=== PATIENT | male | born 1970 | race Caucasian/White ===

== ENCOUNTER 2020-06-23 02:02 | Emergency (ER) | payer OTHER, SELFPAY ==
[2020-06-23 02:06] VITALS: BP 131/79; PULSE 78; RESP 18; TEMP 37; O2SAT 96; BMI 25.2
--- NOTE | 2020-06-23 02:17 | PC.NURSE ---
PATIENT IN C-COLLAR AND IS AWAITING MD EVALUATION WELL IMAGING. PATIENT COMPLAINT OF HEADACHE AND LIGHTS DIMMED FOR PATIENT COMFORT
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
== END 2020-06-23 02:54 | disposition left against medical advice (07) ==
PROVIDERS: Emergency Provider Emergency Medicine
DX: Z04.1 Encounter for examination and observation following transport accident (principal)
CPT/HCPCS: 99283

== ENCOUNTER 2023-09-22 23:12 | Emergency (ER) | payer OTHER, SELFPAY ==
[2023-09-22 23:23] VITALS: BP 133/80; PULSE 64; RESP 18; TEMP 36.5; O2SAT 97; BMI 22.4
== END 2023-09-23 01:52 | disposition left against medical advice (07) ==
PROVIDERS: Emergency Provider Emergency Medicine
DX: S01.511A Laceration without foreign body of lip, initial encounter (principal); X58.XXXA Exposure to other specified factors, initial encounter; Y93.9 Activity, unspecified; Y92.9 Unspecified place or not applicable; Y99.9 Unspecified external cause status
CPT/HCPCS: 99281

== ENCOUNTER 2024-04-30 18:19 | Emergency (ER) | payer OTHER, SELFPAY ==
[2024-04-30 18:32] VITALS: BP 128/72; PULSE 88; RESP 18; TEMP 36.6; O2SAT 96; BMI 20.4
--- NOTE | 2024-04-30 18:36 | ED_ITS ---
HPI - General Adult General Chief complaint: General Medical Stated complaint: left leg infection Time Seen by Provider: 04/30/24 23:11 Source: patient Mode of arrival: ambulatory Limitations: no limitations History of Present Illness ED Provider: Dr. Vaibhav Burgos HPI narrative: 53-year-old male with a history of opiate and cocaine use disorder who presents emergency department for evaluation of abscess and cellulitis of the left lower extremity. The patient states that 4 days prior he injected cocaine into his left lower extremity, and he believes that he missed the vein. He states that 2 days prior he then developed increased pain, redness and swelling. He states that these symptoms have gotten progressively worse. He is currently complaining of 10/10 pain in his left lower extremity. He denied systemic symptoms such as fever, chills, nausea, vomiting or fatigue. Related Data Home Medications ?Medication ?Instructions ?Recorded ?Confirmed No Known Home Meds 06/23/20 06/23/20 Allergies Allergy/AdvReac Type Severity Reaction Status Date / Time No Known Allergies Allergy Verified 04/30/24 18:35 Review of Systems 2 Review of Systems: Yes all other systems are reviewed and are negative [facility] Past Medical History [facility] Narrative: Social history: He does smoke cigarettes. He denies alcohol use. He states that he had a period of sobriety but recently started using cocaine every 1-2 weeks and he has been injecting heroin every 1-2 weeks as well. Patient is in a methadone program. Medical History No known health problems Surgical History No history of previous surgery No history of previous surgery Social History Social History Smoked in Last 30 Days: Yes Use of substances other than those prescribed or required for medical reasons: Yes Substance Use Type: Crack/Cocaine and Heroin Substance Use Frequency: Chronic Longstanding Advance Directives: No Advance Directives Information Provided: No Do you have a plan to hurt others: No Plan Physical Exam ED Vital Signs: Vital Signs - 24 hr 04/30/24 18:32 04/30/24 21:38 Temperature 97.8 F 98.1 F Pulse Rate 88 70 Respiratory Rate 18 17 Blood Pressure 128/72 119/74 Pulse Oximetry 96 96 Oxygen Delivery Method Room Air Room Air BMI result Body Mass Index 20.4 Vital signs were normal Exam: Left lower extremity: The patient just above the ankle to just below the knee, the erythema is warm to the touch, there is a large 8 x 8 cm abscess in the center of the erythema which is flocculent. Extremities neurovascular intact Course Course Course Narrative: This is a rapid medical exam performed by Justin Muñoz NP: Additional HPI, ROS, PE not included below will be deferred to primary provider. Patient is a 53-year-old male with history of opioid use disorder on methadone presenting to the emergency department with complaint of left lower leg infection for the past 3 days. Lower leg appears erythematous and hot to touch, positive swelling. Patient reports injecting cocaine into affected area after a recent relapse. He states that he injected cocaine to the area. Denies fevers. States he attempted to cleanse the area with peroxide. Plan: blood cultures, labs Procedures Abscess I/D Site: lower extremity Side (if applicable): left Local Anesthetic: lidocaine 1% Amount of anesthesia used (mL): 5 Technique: incised with blade Amount of fluid expressed (mL): 75 Sent for culture/gram staining?: Yes Irrigation: Yes Packing used?: iodoform (Quarter-inch) Complications: pain Medical Decision Making Medical Decision Making MDM Narrative: 53-year-old male with a history of heroin and opiate use disorder who presents emergency department for evaluation of cellulitis and abscess was left lower extremity which has gotten progressively worse over the last 2-4 days. The abscess started after he injected cocaine into this area proximally 4 days prior. He had no systemic symptoms. Vital signs were normal. Exam is consistent with a cellulitis of the left lower extremity in the pretibial area with abscess. Differential diagnosis: ?Includes but is not limited to cellulitis, abscess, osteomyelitis Following evaluation was ordered: CBC, CMP, CRP, ESR, lactic acid, wound culture Patient was treated with the following: Dilaudid 1 mg IV x2, Toradol 30 mg IV x1, Keflex 500 mg orally, doxycycline 100 mg orally Course: 00:25 My interpretation patient's laboratory evaluation is as follows: WBC normal 10,800, normocytic anemia with an H&H of 11.4 and 33.5. CRP elevated 19.81. ESR elevated 80. The patient's abscess was incised and drained by me, proximally 75 cc of purulent material was expressed from the abscess cavity. The patient does not want to be admitted at this time and wants to 1st be treated with oral antibiotics. The patient was given his 1st dose of Keflex and doxycycline here in the emergency department. He was prescribed Keflex 500 mg 4 times a day for 7 days and doxycycline 100 mg every 12 hours x7 days. He was given printed and verbal instructions and discharged home. Admission/Observation Consideration of admission/observation: Escalation of care including admission/observation considered Lab Data [facility] Lab Attestation statement: I reviewed the patient's lab results. 04/30/24 19:09 04/30/24 19:09 Labs: Lab Results 04/30/24 04/30/24 Range/Units 19:09 21:36 WBC 10.8 (4.8-10.8) X10*3/uL RBC 3.84 L (4.60-5.80) X10*6/uL Hgb 11.4 L (14.0-18.0) g/dl Hct 33.5 L (42.0-52.0) % MCV 87.2 (80.0-98.0) fL MCH 29.7 (27.0-33.0) pg MCHC 34.0 (31.0-36.0) g/dl RDW 14.7 (11.0-16.0) % Plt Count 348 (160-400) X10*3/uL MPV 8.3 L (9.4-12.4) fL Immature Gran % (Auto) 0.9 H (0.0-0.4) % Neut % (Auto) 70.4 (45-73) % Lymph % (Auto) 13.2 L (20-40) % [place] % (Auto) 13.9 H (2-11) % Eos % (Auto) 1.0 (0-4) % Baso % (Auto) 0.6 (0-2) % Lymph # (Auto) 1.4 (1.2-4.9) X10*3/uL [place] # (Auto) 1.5 H (0.1-1.2) X10*3/uL Eos # (Auto) 0.1 (0.0-0.4) X10*3/uL Baso # (Auto) 0.1 (0.0-0.2) X10*3/uL Abs Immat Gran (auto) 0.10 H (0.00-0.03) X10*3/uL Absolute Neuts (auto) 7.6 (2.0-8.3) x10*3/uL Absolute Nucleated RBC 0.000 (0.0-0.012) X10*3/uL Nucleated RBC % (auto) 0.0 (0.0-0.2) /100WBC ESR 80 H (0-15) MM/HR Sodium 134 L (135-145) mmol/L Potassium 4.4 (3.3-5.1) mmol/L Chloride 95 L (96-108) mmol/L Carbon Dioxide 29 (22-29) mmol/L Anion Gap 14 (12-20) BUN 14 (9-16) mg/dL Creatinine 0.79 (0.5-1.4) mg/dL Estim Creat Clear Calc 101.5 Estimated GFR > 60 Random Glucose 97 (60-115) mg/dL Lactic Acid 0.8 (0.5-2.0) mmol/L Calcium 9.1 (8.4-10.2) mg/dL Total Bilirubin 0.3 (0.0-1.0) mg/dL AST 16 (5-37) U/L ALT 19 (0-40) U/L Alkaline Phosphatase 121 H (39-117) U/L C-Reactive Protein 19.81 H (< or = 0.50) mg/dL Total Protein 7.1 (6.5-8.0) g/dL Albumin 3.5 (3.5-5.0) g/dL Prescription Management I considered prescription management with: Antibiotic Chronic Conditions Patient?s care impacted by: Other (Cocaine and heroin use disorder) Discharge Plan Discharge Clinical Impression: Cellulitis and abscess of left leg, Encounter for incision and drainage procedure Patient Disposition: Home, Self-Care Instructions: Incision and Drainage (ED), Cellulitis (ED) Additional Instructions: Your abscess was incised, drained and packed with [id number] iodoform gauze. The packing needs to stay in for 4 days and can either be removed by you, an urgent care clinic or here in the emergency department. If the packing falls out before 4 days it does not need to be replaced/reinserted. You should keep your leg elevated. You should apply a heating pad on low for 15-20 minutes 4 to 6 times a day you. This will increase the blood flow to the area and help the healing process. Take doxycycline 100 mg, 1 pill every 12 hours for 7 days Take Keflex (cephalexin) 500 mg pills, 1 pill 3 times a day for 7 days. Take ibuprofen 200 mg pills, 2 pills every 6 hours as needed for pain or fever. Take Tylenol (acetaminophen) 500 mg pills, 2 pills every 6 hours as needed for pain or fever. Follow-up with your doctor in 4 days Please return to the emergency department if your symptoms get worse or if you develop any symptoms that are concerning to you. If the redness spreads outside of the blue line then you should return to the emergency department to be re-evaluated and possibly admitted for IV antibiotics. Prescriptions: No Action No Known Home Meds Print Language: Azeri
[2024-04-30 19:18] LABS: Basophils Absolute Auto 0.1 X10*3/uL (0.0-0.2); Basophils Percent Auto 0.6 % (0-2); Eosinophils Absolute Auto 0.1 X10*3/uL (0.0-0.4); Hematocrit 33.5 % (42.0-52.0); Hemoglobin 11.4 g/dl (14.0-18.0); Imm Gran Pct Auto 0.9 % (0.0-0.4); Lymphocytes Absolute Auto 1.4 X10*3/uL (1.2-4.9); Lymphocytes Percent Auto 13.2 % (20-40); MANUAL DIFF FLAG NO; Mean Corpuscular Hemoglobin 29.7 pg (27.0-33.0); Mean Corpuscular Volume 87.2 fL (80.0-98.0); Mean Platelet Volume 8.3 fL (9.4-12.4); Monocytes Absolute Auto 1.5 X10*3/uL (0.1-1.2); Monocytes Percent Auto 13.9 % (2-11); Neutrophils Absolute Auto 7.6 x10*3/uL (2.0-8.3); Neutrophils Percent Auto 70.4 % (45-73); Platelet Count 348 X10*3/uL (160-400); Red Blood Count 3.84 X10*6/uL (4.60-5.80); Red Cell Distribution Width 14.7 % (11.0-16.0); White Blood Count 10.8 X10*3/uL (4.8-10.8)
--- NOTE | 2024-04-30 19:26 | MHC.EDTECH ---
pATIENT BLOOD DRAWN INCLUDING BOTH SETS OF BLOOD CULTURE DRAWN FROM DIFFERENT SITES AND SENT TO LAB ,PIT PROVIDER DID NOT ORDER LACTIC ACID .
[2024-04-30 19:42] LABS: Alanine Aminotransferase 19 U/L (0-40); Albumin Level 3.5 g/dL (3.5-5.0); Alkaline Phosphatase 121 U/L (39-117); Anion Gap 14 (12-20); Aspartate Amino Transferase 16 U/L (5-37); Bilirubin Total 0.3 mg/dL (0.0-1.0); Blood Urea Nitrogen 14 mg/dL (9-16); C Reactive Protein 19.81 mg/dL (< or = 0.50); Calcium 9.1 mg/dL (8.4-10.2); Carbon Dioxide 29 mmol/L (22-29); Chloride 95 mmol/L (96-108); Creatinine Clr Calc Pharmacy 101.5; Estimated Glomerular Filt Rate > 60; Glucose Random 97 mg/dL (60-115); Potassium 4.4 mmol/L (3.3-5.1); Sodium 134 mmol/L (135-145); Total Protein 7.1 g/dL (6.5-8.0)
[2024-04-30 20:14] LABS: Erythrocyte Sedimentation Rate 80 MM/HR (0-15)
[2024-04-30 21:38] VITALS: BP 119/74; PULSE 70; RESP 17; TEMP 36.7; O2SAT 96
[2024-04-30 21:54] LABS: Lactic Acid 0.8 mmol/L (0.5-2.0)
[2024-04-30] MEDS: Ketorolac Tromethamine 15 MG/ML VIAL 30 MG IVPUSH (23:27)
[2024-04-30] MEDS: HYDROmorphone HCl 1 MG/ML SYRINGE IVPUSH (23:28)
[2024-05-01] MEDS: Lidocaine HCl 1 % MPF 5 ML VIAL EPIDURAL (00:14)
[2024-05-01] MEDS: HYDROmorphone HCl 1 MG/ML SYRINGE IVPUSH (00:29)
[2024-05-01] MEDS: Doxycycline Monohydrate 100 MG CAPSULE PO (00:29)
[2024-05-01] MEDS: cephALEXin 500 MG CAPSULE PO (00:29)
[2024-05-01 00:44] VITALS: BP 119/74; PULSE 70; RESP 17; TEMP 36.7; O2SAT 96
== END 2024-05-01 00:40 | disposition home or self-care (01) ==
PROVIDERS: Registered Nurse Emergency; Emergency Provider Emergency Medicine Emergency Medical Services; PCP Internal Medicine
DX: L03.116 Cellulitis of left lower limb (principal); F11.20 Opioid dependence, uncomplicated; F17.210 Nicotine dependence, cigarettes, uncomplicated
CPT/HCPCS: 10060; 36415; 80053; 83605; 85025; 85652; 86140; 87040; 87070; 87077; 87186; 87205; 96374; 96375; 96376; 99284; J1170; J1885

== ENCOUNTER 2025-02-14 09:15 | Outpatient (RCR) | payer OTHER, SELFPAY ==
[2025-02-07 11:20] VITALS: BMI 23.8
[2025-02-07 11:21] VITALS: BP 140/80; PULSE 64; TEMP 36.8
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
--- NOTE | 2025-02-08 09:24 | PC.NURSE ---
I asked Colby if he was able to complete a TOVAR today. He stated he was not and walked away.
--- NOTE | 2025-02-09 16:25 | HO.PHP ---
Client's case has been opened and reviewed in team.
--- NOTE | 2025-02-09 17:23 | HO.PHP ---
Colby went home half day today, 02/09/25, reported increased physical pain.Denied SI, safe, reports he will be in tomorrow.
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
--- NOTE | 2025-02-15 15:49 | HO.PHP ---
Colby did not come in to programming today 02/15/25, pt was sent home yesterday due to active pink eye symptoms. A voicemail was left today requesting a call back to assess safety and status of his pink eye and if pt will be able to return and complete PHP or if he will need a medical discharge due to his infection. Pt did call back and left a voicemail that was difficult to understand, mentioned forgetting to call and something about returning to PHP but pt details were not clear. Cobbler Sole called Colby again, left a voicemail asking him to contact Nery or this magnetic tape typewriter operator for an update but pt did not call back. His emergency contact Vanessa was called at roughly 3:30pm and a voicemail was asking her to call contact PHP or to inform Colby to contact [facility].
--- NOTE | 2025-02-16 11:59 | HO.PHP ---
Colby called [facility] this morning a roughly 8:30 am stating he is extremely sick with diarrhea headaches, and body aches, said the pink eye is worse. Colby stated he will probably going go to [facility] today. Denied needing a ambulance or in a current emergency state. Stated he was safe but very ill, asked if he can come back when he?s better. Music Intern informed him he will be discharged from [facility] due to his illness but he can call Nery to reschedule an intake when he is better and should he feel he need this level of care. Pt informed the [facility] provider may contact him later as well to discuss his followup plan.
== END 2025-02-14 23:59 | disposition home or self-care (01) ==
LOC: HO.PHPA 09:15
PROVIDERS: Visit Provider Psychiatry & Neurology Psychiatry
DX: F63.9 Impulse disorder, unspecified (principal); F32.A Depression, unspecified; F41.3 Other mixed anxiety disorders; F14.10 Cocaine abuse, uncomplicated; F19.20 Other psychoactive substance dependence, uncomplicated
CPT/HCPCS: 90791; 90853

== ENCOUNTER → 2025-02-14 09:15 | Outpatient (BNV) | payer OTHER, SELFPAY | PROVIDERS: Visit Provider Psychiatry & Neurology Psychiatry | DX: F14.10 Cocaine abuse, uncomplicated (principal); F32.A Depression, unspecified; F41.3 Other mixed anxiety disorders; F19.20 Other psychoactive substance dependence, uncomplicated; F63.9 Impulse disorder, unspecified | CPT/HCPCS: 99203; 99213 ==

== ENCOUNTER 2025-03-09 08:00 | Outpatient (RCR) | payer OTHER, SELFPAY ==
[2025-03-06 15:11] VITALS: BP 118/76; PULSE 70; RESP 16; TEMP 36.8
[2025-03-06 15:13] VITALS: BMI 24.7
--- NOTE | 2025-03-06 16:28 | PC.NURSE ---
Colby is a 54 year old male, self-referred to the [facility] Program. He reported symptoms of severe insomnia, restlessness, anxiety, lack of support and resources. Upon approach well dressed, appears slightly drowsy reports it's due to taking his methadone. When asked how he felt stated Today I feel fine, I'm just tired he denied endorsing anxiety or depression. He reports he's here because I want to help myself, and get my shit together. When asked if he had any thoughts of wanting to hurt or kill self stated No. When asked if he had any thoughts of wanting to hurt or kill others stated No. Colby reports he has a history of falls, stated My head hasn't been right, he reports he had imaging done and will get his results tomorrow. He also reports Always being in pain. Reports appetite is Ok, he reports poor sleep, when asked to elaborate stated I sleep roughly anywhere from 10-15 hours a week. Colby appears future oriented he reports I'm doing this for myself.
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
[2025-03-08 10:05] VITALS: BP 148/98
[2025-03-08 10:06] VITALS: BP 144/92; PULSE 80; RESP 16; TEMP 36.2
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
--- NOTE | 2025-03-08 17:09 | PC.NURSE ---
Colby appeared jittery, when asked how he felt stated I'm fine, I'm just tired. He was asked if he wanted to go home to which he replied Yes, I just don't want to be kicked out of the program, he was informed he was not going to be kicked out of the program for going home today. He was given his lab and encouraged to get his blood drawn, to which he stated I will tomorrow when I come in.
--- NOTE | 2025-03-09 14:52 | HO.PHP ---
This case was opened and reviewed on treatment teams.
== END 2025-03-09 23:59 | disposition home or self-care (01) ==
LOC: HO.PHPA 08:00
PROVIDERS: Visit Provider Psychiatry & Neurology Psychiatry
DX: F14.10 Cocaine abuse, uncomplicated (principal); F32.A Depression, unspecified; F11.20 Opioid dependence, uncomplicated; F17.200 Nicotine dependence, unspecified, uncomplicated
CPT/HCPCS: 90791; 90853

== ENCOUNTER → 2025-03-09 08:00 | Outpatient (BNV) | payer OTHER, SELFPAY | PROVIDERS: Visit Provider Psychiatry & Neurology Psychiatry | DX: F14.10 Cocaine abuse, uncomplicated (principal); F32.A Depression, unspecified; F19.20 Other psychoactive substance dependence, uncomplicated | CPT/HCPCS: 99499 ==

== ENCOUNTER → 2025-03-09 08:23 | Outpatient (REF) | payer OTHER, SELFPAY ==
--- NOTE | 2025-03-09 | ECG_ITS ---
Test Reason : check qt Blood Pressure : */* mmHG Vent. Rate : 81 BPM Atrial Rate : 81 BPM P-R Int : 170 ms QRS Dur : 118 ms QT Int : 404 ms P-R-T Axes : 69 34 63 degrees QTcB Int : 469 ms Normal sinus rhythm Non-specific intra-ventricular conduction delay Borderline ECG No previous ECGs available Referred By: Aminata Moise Electronically Signed By: Chilo Brambila
[2025-03-09 09:12] LABS: MANUAL DIFF FLAG NO
[2025-03-09 09:34] LABS: Basophils Absolute Auto 0.1 X10*3/uL (0.0-0.2); Basophils Percent Auto 0.7 % (0-2); Eosinophils Absolute Auto 0.3 X10*3/uL (0.0-0.4); Eosinophils Percent Auto 3.6 % (0-4); Hematocrit 38.4 % (42.0-52.0); Hemoglobin 12.9 g/dl (14.0-18.0); Imm Gran Abs Auto 0.02 X10*3/uL (0.00-0.03); Imm Gran Pct Auto 0.3 % (0.0-0.4); Lymphocytes Absolute Auto 1.2 X10*3/uL (1.2-4.9); Lymphocytes Percent Auto 17.9 % (20-40); Mean Corpuscular HGB Conc 33.6 g/dl (31.0-36.0); Mean Corpuscular Hemoglobin 29.8 pg (27.0-33.0); Mean Corpuscular Volume 88.7 fL (80.0-98.0); Mean Platelet Volume 8.7 fL (9.4-12.4); Monocytes Absolute Auto 0.6 X10*3/uL (0.1-1.2); Monocytes Percent Auto 8.1 % (2-11); Neutrophils Absolute Auto 4.8 x10*3/uL (2.0-8.3); Neutrophils Percent Auto 69.4 % (45-73); Platelet Count 312 X10*3/uL (160-400); Red Blood Count 4.33 X10*6/uL (4.60-5.80); Red Cell Distribution Width 13.3 % (11.0-16.0); White Blood Count 6.9 X10*3/uL (4.8-10.8)
[2025-03-09 09:41] LABS: Prothrombin Time 11.1 SEC (10.9-12.4)
[2025-03-09 09:43] LABS: Estimated Average Glucose 126 mg/dL
[2025-03-09 09:44] LABS: Partial Thromboplastin Time 31.7 SEC (26.0-36.8)
[2025-03-09 10:11] LABS: Alanine Aminotransferase 28 U/L (0-40); Albumin Level 4.3 g/dL (3.5-5.0); Alkaline Phosphatase 80 U/L (39-117); Anion Gap 12 (12-20); Aspartate Amino Transferase 31 U/L (5-37); Bilirubin Total 0.2 mg/dL (0.0-1.0); Blood Urea Nitrogen 14 mg/dL (9-16); C Reactive Protein 0.36 mg/dL (< or = 0.50); Calcium 9.5 mg/dL (8.4-10.2); Carbon Dioxide 32 mmol/L (22-29); Chloride 104 mmol/L (96-108); Cholesterol 215 mg/dL (<200); Estimated Glomerular Filt Rate > 60; Ethanol < 10 mg/dL; Gamma Glutamyl Transpeptidase 31 U/L (11-51); Glucose Fasting 85 mg/dL (60-99); HDL Cholesterol 59 mg/dL (>40); Iron 70 mcg/dL (45-160); LDL Cholesterol Calculated 128 mg/dL (<100); Percent Iron Saturation 23 % (15-50); Potassium 4.8 mmol/L (3.3-5.1); Sodium 143 mmol/L (135-145); Total Iron Binding Capacity 299 mcg/dL (228-428); Total Protein 7.5 g/dL (6.5-8.0); Triglycerides 142 mg/dL (<150); Unsaturated Iron Binding 229 ug/dL
[2025-03-09 10:16] LABS: Erythrocyte Sedimentation Rate 19 MM/HR (0-15)
[2025-03-09 10:34] LABS: Free T4 (Free Thyroxine) 1.05 ng/dL (0.71-1.85); Thyroid Stimulating Hormone 1.78 uIU/mL (0.32-4.0); Uric Acid 5.4 mg/dL (3.4-7.0); Vitamin D 25-OH Total 42.4 ng/mL (>30)
[2025-03-09 10:39] LABS: Vitamin B12 421 pg/mL (200-900)
[2025-03-13 17:08] LABS: Homocysteine 13.4 umol/L (< or = 15.2)
[2025-03-15 05:53] LABS: Vitamin B1 20 nmol/L (8-30)
== END ==
LOC: HO.CARD 08:23
PROVIDERS: Visit Provider Psychiatry & Neurology Psychiatry
DX: F39 Unspecified mood [affective] disorder (principal); F19.20 Other psychoactive substance dependence, uncomplicated
CPT/HCPCS: 36415; 80053; 80061; 80307; 82306; 82550; 82607; 82746; 82977; 83036; 83090; 83540; 84425; 84439; 84443; 84550; 85025; 85610; 85652; 85730; 86140; 93005

== ENCOUNTER → 2025-03-09 08:45 | Outpatient (BNV) | payer OTHER, SELFPAY | PROVIDERS: Visit Provider Internal Medicine Cardiovascular Disease | DX: I45.4 Nonspecific intraventricular block (principal) | CPT/HCPCS: 93010 ==

== ENCOUNTER → 2025-04-26 08:00 | Outpatient (BNV) | payer OTHER, SELFPAY | PROVIDERS: Visit Provider Psychiatry & Neurology Psychiatry | DX: F32.2 Major depressive disorder, single episode, severe without psychotic features (principal); F14.10 Cocaine abuse, uncomplicated; F11.20 Opioid dependence, uncomplicated; F19.20 Other psychoactive substance dependence, uncomplicated | CPT/HCPCS: 99499 ==

== ENCOUNTER 2025-04-27 08:00 | Outpatient (RCR) | payer OTHER, SELFPAY ==
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
[2025-04-12 12:49] VITALS: BP 132/75; PULSE 72; RESP 16; TEMP 36.8
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
[2025-04-14 08:43] LABS: Cannabinoid Screen Urine Not Detected (Not Detect)
--- NOTE | 2025-04-24 11:22 | PC.NURSE ---
Patient has a cora bandage on his right lower arm. He told staff that a cat scratched him and it is infected. I checked in with patient and asked if I could take a look at the area. Patient stated he was fine and did not want me to look at the area. He stated he is putting antibiotic ointment on the area. I advised him to go to urgent care if the area worsens or does not improve.
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
[2025-04-27 11:34] VITALS: BMI 23.8
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
--- NOTE | 2025-04-27 12:25 | HO.PHP ---
Pt was advised to wait and meet with Dr. Johnson to go over discharge instructions, but Colby refused. He signed his paperwork and he left without waiting.
== END 2025-04-27 23:59 | disposition home or self-care (01) ==
LOC: HO.PHPA 08:00
PROVIDERS: Visit Provider Psychiatry & Neurology Psychiatry
DX: F14.10 Cocaine abuse, uncomplicated (principal); F11.20 Opioid dependence, uncomplicated; F32.A Depression, unspecified; F19.20 Other psychoactive substance dependence, uncomplicated
CPT/HCPCS: 80307; 90791; 90853